=== PATIENT | male | born 1975 | race Caucasian/White ===

== ENCOUNTER → 2020-09-03 | Day surgery (SDC) | payer OTHER ==
[~2020-09-03] VITALS: Ht 162.6 cm; Wt 118.0 kg
[~2020-09-03] MED LIST: BUSPAR5 MG PO; DAILY VALUE1 EACH PO; DESVENLAFAXINE100 M3 PO; GABAPENTIN600 MG PO; HCTZ25 MG PO; IBUPROFEN800 MG PO; METFORMIN HCL500 MG PO; MINIPRES1 MG PO; PRILOSEC20 MG PO; PRINIVIL20 MG PO; REVATIO 20MG TA20 MG PO; TRAZODONE HCL150 MG PO
== END | disposition home or self-care (01) ==
LOC: FAS 06-11 07:30
DX: K31.7 Polyp of stomach and duodenum (principal); D12.3 Benign neoplasm of transverse colon; K62.1 Rectal polyp; K64.4 Residual hemorrhoidal skin tags; K64.8 Other hemorrhoids; K31.9 Disease of stomach and duodenum, unspecified; K21.9 Gastro-esophageal reflux disease without esophagitis; K92.1 Melena; K52.9 Noninfective gastroenteritis and colitis, unspecified; I10 Essential (primary) hypertension; E11.9 Type 2 diabetes mellitus without complications; F43.10 Post-traumatic stress disorder, unspecified; F41.8 Other specified anxiety disorders; E66.9 Obesity, unspecified; Z98.84 Bariatric surgery status; Z90.3 Acquired absence of stomach [part of]
CPT/HCPCS: 82962; J2250; J2704; J7120